=== PATIENT | female | born 1990 | race Two or more races ===

== ENCOUNTER 2018-07-09 15:00 | Inpatient (IN) | payer MEDICAID ==
[~2018-07-09] VITALS: Ht 160 cm; Wt 89.9 kg
[2018-07-09 15:53] LABS: Urine Bacteria NONE SEEN /hpf (None Seen); Urine Blood Negative /uL (Negative); Urine Specific Gravity 1.027 (1.001-1.035); Urine WBC 4 /hpf (0 - 5)
[2018-07-09 16:48] LABS: Basophils # (auto) 0 uL; Basophils % (auto) 0.4 % (0.0-2.0); Eosinophils # (auto) 0 uL; Eosinophils % (auto) 0.1 % (0.0-7.0); Hematocrit 42.3 % (36.0-46.0); Hemoglobin 14.4 g/dL (12.2-16.2); Lymphocytes % (auto) 19.5 % (10.0-50.0); Mean Corpuscular Hemoglobin 29.8 pg (28.0-32.0); Mean Corpuscular Volume 87.5 fL (80.0-100.0); Monocytes # (auto) 0.7 uL; Monocytes % (auto) 6.7 % (0.0-12.0); Neutrophils # (auto) 7.5 uL; Neutrophils % (auto) 73.3 % (37.0-80.0); Nucleated Red Blood Cells % 0.1 %; Platelet Count (auto) 257 10^3/uL (140-450); Red Blood Cells 4.83 10^6/uL (4.0-5.20); Red Cell Distribution Width 12.9 % (11.8-14.3); White Blood Cell 10.2 10^3/uL (4.4-10.8)
[2018-07-09] MEDS ORDERED: SODIUM CHLORIDE 0.9% 1,000 ML IV ONE ×2 (17:07)
[2018-07-09] MEDS ORDERED: cefTRIAXone 1GM/50ML D5W 50 ML IV ONE ×2 (17:15→18:30)
[2018-07-09 17:23] LABS: Albumin 4.2 g/dL (3.4-5.0); BUN/Creatinine Ratio 15.7; Calcium 9.1 mg/dL (8.5-10.1)
[2018-07-09 17:26] LABS: Bilirubin, Total 0.4 mg/dL (0.2-1.0); Total Protein 8.4 g/dL (6.4-8.2)
[2018-07-09] MEDS ORDERED: IOHEXOL 300 MG/ML 100ML BOTTLE IJ ONE (18:28)
[2018-07-09] MEDS ORDERED: NITROGLYCERIN 0.4 MG SL TAB SL PRN (18:30)
[2018-07-09] MEDS ORDERED: MORPHINE SULFATE 4 MG/ML SYR/VIAL IV PRN (18:30)
[2018-07-09 18:55] LABS: Amylase 58 U/L (25-115); Lipase 119 U/L (73-393)
[2018-07-09 19:03] LABS: INR 0.93 (0.9-1.15); Partial Thromboplastin Time 29.6 sec (23.78-33.04)
[2018-07-09] MEDS: FAMOTIDINE (10MG/ML) 2ML VL IV SCH (19:03)
[2018-07-09] MEDS: MORPHINE SULFATE 4 MG/ML SYR/VIAL IV PRN ×2 (19:03→22:12)
[2018-07-09] MEDS: SODIUM CHLORIDE 0.9% 1,000 ML IV SCH (20:16)
[2018-07-09] MEDS: metroNIDAZOLE 500MG/100ML 100 ML IV SCH (23:57)
[2018-07-10] MEDS: MORPHINE SULFATE 4 MG/ML SYR/VIAL IV PRN (01:33)
[2018-07-10] MEDS: SODIUM CHLORIDE 0.9% 1,000 ML IV SCH ×2 (04:29→16:55)
[2018-07-10] MEDS: metroNIDAZOLE 500MG/100ML 100 ML IV SCH ×4 (06:21→23:33)
[2018-07-10] MEDS: FAMOTIDINE (10MG/ML) 2ML VL IV SCH ×2 (06:21→18:29)
[2018-07-10 07:59] LABS: Basophils # (auto) 0 uL; Basophils % (auto) 0.3 % (0.0-2.0); Eosinophils # (auto) 0 uL; Eosinophils % (auto) 0.2 % (0.0-7.0); Hematocrit 38.5 % (36.0-46.0); Hemoglobin 12.9 g/dL (12.2-16.2); Lymphocytes # (auto) 2.1 uL; Lymphocytes % (auto) 18.7 % (10.0-50.0); Mean Corpuscular Hemoglobin 29.4 pg (28.0-32.0); Mean Corpuscular Hgb Conc. 33.4 g/dL (32.0-36.0); Mean Corpuscular Volume 88.1 fL (80.0-100.0); Monocytes # (auto) 0.9 uL; Monocytes % (auto) 8.4 % (0.0-12.0); Neutrophils % (auto) 72.4 % (37.0-80.0); Nucleated Red Blood Cells % 0.1 %; Platelet Count (auto) 218 10^3/uL (140-450); Red Blood Cells 4.37 10^6/uL (4.0-5.20); Red Cell Distribution Width 12.5 % (11.8-14.3); White Blood Cell 11.1 10^3/uL (4.4-10.8)
[2018-07-10 08:08] LABS: Albumin 3.5 g/dL (3.4-5.0); Calcium 8.2 mg/dL (8.5-10.1); Potassium 3.5 mmol/L (3.5-5.1)
[2018-07-10 08:10] LABS: BUN/Creatinine Ratio 13.5
[2018-07-10 08:12] LABS: Bilirubin, Total 0.6 mg/dL (0.2-1.0); Total Protein 7.1 g/dL (6.4-8.2)
[2018-07-10] MEDS ORDERED: cefTRIAXone 1GM/50ML D5W 50 ML IV SCH (09:00)
[2018-07-10 12:40] VITALS: BP 130/90
[2018-07-10 16:29] VITALS: BP 123/80
[2018-07-10 22:00] VITALS: BP 129/72
[2018-07-11] MEDS: SODIUM CHLORIDE 0.9% 1,000 ML IV SCH ×3 (00:29→20:29)
[2018-07-11] MEDS: MORPHINE SULFATE 4 MG/ML SYR/VIAL IV PRN (04:27)
[2018-07-11 05:00] VITALS: BP 131/99
[2018-07-11 05:36] LABS: Basophils # (auto) 0 uL; Basophils % (auto) 0.2 % (0.0-2.0); Eosinophils # (auto) 0.1 uL; Eosinophils % (auto) 1.2 % (0.0-7.0); Hematocrit 39.2 % (36.0-46.0); Hemoglobin 13.3 g/dL (12.2-16.2); Lymphocytes # (auto) 2.1 uL; Lymphocytes % (auto) 22.1 % (10.0-50.0); Mean Corpuscular Hgb Conc. 33.8 g/dL (32.0-36.0); Mean Corpuscular Volume 88.8 fL (80.0-100.0); Monocytes # (auto) 0.7 uL; Monocytes % (auto) 7.7 % (0.0-12.0); Neutrophils # (auto) 6.5 uL; Neutrophils % (auto) 68.8 % (37.0-80.0); Nucleated Red Blood Cells % 0.1 %; Platelet Count (auto) 226 10^3/uL (140-450); Red Blood Cells 4.42 10^6/uL (4.0-5.20); Red Cell Distribution Width 12.7 % (11.8-14.3); White Blood Cell 9.4 10^3/uL (4.4-10.8)
[2018-07-11 05:47] LABS: Albumin 3.5 g/dL (3.4-5.0); BUN/Creatinine Ratio 16.9; Calcium 8.2 mg/dL (8.5-10.1); Potassium 3.2 mmol/L (3.5-5.1)
[2018-07-11 05:50] LABS: Bilirubin, Total 0.8 mg/dL (0.2-1.0); Total Protein 7.3 g/dL (6.4-8.2)
[2018-07-11] MEDS: FAMOTIDINE (10MG/ML) 2ML VL IV SCH (06:30)
[2018-07-11] MEDS: metroNIDAZOLE 500MG/100ML 100 ML IV SCH ×3 (06:42→22:03)
[2018-07-11] MEDS ORDERED: ceFAZolin 1GM/50ML 50 ML IV ONE (06:54)
[2018-07-11] MEDS ORDERED: MIDAZOLAM HCL 1MG/1ML-2 ML VIAL ONE (07:21)
[2018-07-11] MEDS ORDERED: fentaNYL CITRATE 100 MCG/2 ML VL ONE ×2 (07:21→07:22)
[2018-07-11] MEDS ORDERED: ROCURONIUM 10MG/ML 10ML VIAL IV ONE (07:21)
[2018-07-11] MEDS ORDERED: PROPOFOL 10 MG/ML 20 ML IV ONE (07:22)
[2018-07-11] MEDS ORDERED: HYDROmorphone HCL 2 MG/ML VL IV PRN (08:45)
[2018-07-11] MEDS ORDERED: HYDROmorphone HCL 2 MG/ML VL ONE (08:59)
[2018-07-11] MEDS: HYDROmorphone HCL 2 MG/ML VL IV PRN ×3 (09:00→11:21)
[2018-07-11] MEDS ORDERED: hydrALAZINE HCL 20 MG/ML VL IV PRN (09:00)
[2018-07-11] MEDS ORDERED: ePHEDrine SULFATE 50 MG/ML AMP IV PRN (09:00)
[2018-07-11] MEDS ORDERED: ONDANSETRON HCL 4 MG/2 ML VIAL IV ONE (09:00)
[2018-07-11] MEDS ORDERED: POTASSIUM CHL 20 Meq TABLET PO ONE (11:15)
[2018-07-11] MEDS: ONDANSETRON HCL 4 MG/2 ML VIAL IV PRN (12:36)
[2018-07-11] MEDS: PANTOPRAZOLE 40 MG/10 ML VIAL IV SCH (12:36)
[2018-07-11 13:00] VITALS: BP 102/60
[2018-07-11] MEDS: ceFAZolin 1GM/50ML 50 ML IV SCH ×2 (16:12→21:06)
[2018-07-11 17:00] VITALS: BP 103/61
[2018-07-11] MEDS: HYDROcodone-ACET 5/325MG TAB PO PRN (17:14)
[2018-07-11 22:00] VITALS: BP 109/70
[2018-07-12] VITALS (7 sets, daily range): BP systolic 103–130; BP diastolic 51–83
[2018-07-12] MEDS: HYDROmorphone HCL 2 MG/ML VL IV PRN (03:45)
[2018-07-12] MEDS: ceFAZolin 1GM/50ML 50 ML IV SCH ×3 (05:34→22:06)
[2018-07-12] MEDS: metroNIDAZOLE 500MG/100ML 100 ML IV SCH ×3 (06:14→23:09)
[2018-07-12 06:36] LABS: Basophils # (auto) 0 uL; Basophils % (auto) 0.1 % (0.0-2.0); Eosinophils # (auto) 0 uL; Eosinophils % (auto) 0.1 % (0.0-7.0); Hematocrit 35.1 % (36.0-46.0); Lymphocytes # (auto) 1.4 uL; Lymphocytes % (auto) 15.9 % (10.0-50.0); Mean Corpuscular Hemoglobin 30.7 pg (28.0-32.0); Mean Corpuscular Hgb Conc. 34.3 g/dL (32.0-36.0); Mean Corpuscular Volume 89.4 fL (80.0-100.0); Monocytes # (auto) 0.6 uL; Monocytes % (auto) 6.7 % (0.0-12.0); Neutrophils % (auto) 77.2 % (37.0-80.0); Platelet Count (auto) 220 10^3/uL (140-450); Red Blood Cells 3.93 10^6/uL (4.0-5.20); White Blood Cell 9.1 10^3/uL (4.4-10.8)
[2018-07-12 06:58] LABS: Potassium 3.6 mmol/L (3.5-5.1)
[2018-07-12 07:11] LABS: Albumin 3.2 g/dL (3.4-5.0); BUN/Creatinine Ratio 13.5; Bilirubin, Total 0.4 mg/dL (0.2-1.0); Calcium 8.1 mg/dL (8.5-10.1); Total Protein 6.8 g/dL (6.4-8.2)
[2018-07-12] MEDS: PANTOPRAZOLE 40 MG/10 ML VIAL IV SCH (09:42)
[2018-07-12] MEDS ORDERED: HYDROmorphone HCL 2 MG/ML VL IV PRN (11:00)
[2018-07-12] MEDS: SODIUM CHLORIDE 0.9% 1,000 ML IV SCH ×2 (12:01→23:09)
[2018-07-12] MEDS: HYDROcodone-ACET 5/325MG TAB PO PRN (20:10)
[2018-07-13 05:00] VITALS: BP 125/87
[2018-07-13] MEDS: ceFAZolin 1GM/50ML 50 ML IV SCH ×2 (05:04→14:00)
[2018-07-13] MEDS: metroNIDAZOLE 500MG/100ML 100 ML IV SCH ×2 (06:05→15:00)
[2018-07-13 06:19] LABS: Basophils # (auto) 0 uL; Basophils % (auto) 0.3 % (0.0-2.0); Eosinophils # (auto) 0.1 uL; Eosinophils % (auto) 1.1 % (0.0-7.0); Hematocrit 34.5 % (36.0-46.0); Hemoglobin 11.7 g/dL (12.2-16.2); Lymphocytes # (auto) 2.9 uL; Lymphocytes % (auto) 38.2 % (10.0-50.0); Mean Corpuscular Hemoglobin 30.4 pg (28.0-32.0); Mean Corpuscular Hgb Conc. 34.1 g/dL (32.0-36.0); Mean Corpuscular Volume 89.1 fL (80.0-100.0); Monocytes # (auto) 0.5 uL; Monocytes % (auto) 6.5 % (0.0-12.0); Neutrophils # (auto) 4.1 uL; Neutrophils % (auto) 53.9 % (37.0-80.0); Nucleated Red Blood Cells % 0.1 %; Platelet Count (auto) 221 10^3/uL (140-450); Red Blood Cells 3.87 10^6/uL (4.0-5.20); Red Cell Distribution Width 12.8 % (11.8-14.3); White Blood Cell 7.6 10^3/uL (4.4-10.8)
[2018-07-13 06:41] LABS: Albumin 3.1 g/dL (3.4-5.0); BUN/Creatinine Ratio 11.5; Calcium 7.7 mg/dL (8.5-10.1); Potassium 3.1 mmol/L (3.5-5.1)
[2018-07-13 06:44] LABS: Bilirubin, Total 0.3 mg/dL (0.2-1.0); Total Protein 6.3 g/dL (6.4-8.2)
[2018-07-13] MEDS: ONDANSETRON HCL 4 MG/2 ML VIAL IV PRN (08:55)
[2018-07-13 09:00] VITALS: BP 112/79
[2018-07-13] MEDS ORDERED: PANTOPRAZOLE 40 MG TAB PO SCH (10:00)
[2018-07-13] MEDS ORDERED: POTASSIUM CHL 20 Meq TABLET PO ONE (10:15)
[2018-07-13 11:49] VITALS: BP 112/79
[2018-07-13 13:00] VITALS: BP 125/87
[2018-07-13] MEDS: SODIUM CHLORIDE 0.9% 1,000 ML IV SCH (13:40)
== END 2018-07-13 16:20 | disposition home or self-care (01) | DRG 263 ==
LOC: ER 15:00 → TELE 18:31 → TELE-CENTR 07-10 09:03 → CENTRAL 07-12 10:56
PROVIDERS: ADMIT Internal Medicine; ATTEND Internal Medicine
PROC: 0FT44ZZ Resection of Gallbladder, Percutaneous Endoscopic Approach (ICD-10-PCS; principal; 2018-07-11 07:20)
DX: K80.00 Calculus of gallbladder with acute cholecystitis without obstruction (principal); E66.01 Morbid (severe) obesity due to excess calories; Z82.49 Family history of ischemic heart disease and other diseases of the circulatory system; Z83.3 Family history of diabetes mellitus; Z68.35 Body mass index [BMI] 35.0-35.9, adult
CPT/HCPCS: 36415; 74177; 76705; 78226; 80053; 81001; 81025; 82150; 82247; 83690; 85025; 85610; 85730; 86850; 86900; 86901; 87040; 96361; 96365; 96375; A6257; C9113; G0378; J0690; J0696; J2250; J2405; J2704; J3490